=== PATIENT | female | born 1995 | race Two or more races ===

== ENCOUNTER 2017-06-03 21:51 | Emergency (ER) | payer MEDICAID ==
[~2017-06-03] VITALS: Ht 154.9 cm; Wt 45.4 kg
[2017-06-03 22:04] VITALS: BP 124/73
[2017-06-03 22:36] LABS: Basophils # (auto) 0 uL; CONDITION Y; Eosinophils # (auto) 0 uL; Eosinophils % (auto) 0.4 % (0.0-7.0); Hematocrit 41.8 % (36.0-46.0); Hemoglobin 13.9 g/dL (12.2-16.2); Lymphocytes # (auto) 2.4 uL; Lymphocytes % (auto) 24.9 % (10.0-50.0); Mean Corpuscular Hemoglobin 27.9 pg (28.0-32.0); Mean Corpuscular Hgb Conc. 33.3 g/dL (32.0-36.0); Mean Corpuscular Volume 83.8 fL (80.0-100.0); Mean Platelet Volume 8.7 fL (7.4-10.4); Monocytes # (auto) 0.4 uL; Monocytes % (auto) 4.3 % (0.0-12.0); Neutrophils # (auto) 6.8 uL; Neutrophils % (auto) 70.4 % (37.0-80.0); Platelet Count (auto) 370 10^3/uL (140-450); Red Cell Distribution Width 15.4 % (11.6-16.0); White Blood Cell 9.7 10^3/uL (4.4-10.8)
[2017-06-03 22:52] LABS: Albumin 3.9 g/dL (3.4-5.0); BUN/Creatinine Ratio 10.3; Calcium 8.6 mg/dL (8.5-10.1); Potassium 3.6 mmol/L (3.5-5.1)
[2017-06-03 22:55] LABS: Bilirubin, Total 0.3 mg/dL (0.2-1.0); Total Protein 8.5 g/dL (6.4-8.2)
[2017-06-03 23:03] LABS: Urine Bilirubin Negative (Negative); Urine Blood 2+ /uL (Negative); Urine Color Yellow (Yellow); Urine Glucose Normal (Normal); Urine Ketone 1+ (Negative); Urine Mucus FEW (None Seen); Urine Nitrite Negative (Negative); Urine RBC <1 /hpf (0 - 4); Urine Squamous Epithelial Cell FEW /hpf (<5); Urine Urobilinogen Normal (Negative); Urine pH 6.5 (5.0-8.0)
[2017-06-04] MEDS ORDERED: ONDANSETRON HCL 4 MG/2 ML VIAL IV ONE (00:45)
[2017-06-04] MEDS ORDERED: SODIUM CHLORIDE 0.9% 1,000 ML IV ONE ×2 (01:30)
== END 2017-06-04 02:19 | disposition home or self-care (01) ==
LOC: EDSEX 21:57 → ER 21:57
DX: E86.0 Dehydration (principal)
CPT/HCPCS: 36415; 80053; 81001; 81025; 84702; 85025; 96374; 99284; J2405; J7030

== ENCOUNTER 2017-11-17 18:40 | Emergency (ER) | payer SELFPAY ==
[~2017-11-17] VITALS: Ht 154.9 cm; Wt 57.2 kg
[2017-11-17 18:55] VITALS: BP 140/70
== END 2017-11-17 21:31 | disposition left against medical advice (07) ==
LOC: EDBD 18:40 → ER 18:40 → EDUNIT# 18:40 → ER 21:31
DX: S40.812A Abrasion of left upper arm, initial encounter (principal); Z53.21 Procedure and treatment not carried out due to patient leaving prior to being seen by health care provider; W45.8XXA Other foreign body or object entering through skin, initial encounter; Y93.89 Activity, other specified; Y92.89 Other specified places as the place of occurrence of the external cause; Y99.8 Other external cause status

== ENCOUNTER 2025-01-19 00:17 | Inpatient (IN) | payer MEDICAID, OTHER ==
[~2025-01-19] VITALS: Ht 162.6 cm; Wt 65.9 kg
[2025-01-19 00:30] VITALS: PULSE 131; RESP 43; O2SAT 100
--- NOTE | 2025-01-19 00:36 | ED.PDOC ---
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 * Individuals, who brought patient, eloped from emergency department after endorsing on finding her in her current stated after she drank alcohol at a green party. They also noted that she is . * Limited history, due to patient being altered and no family/additional historians being present upon patient's initial presentation. Vitals Temperature: Respiratory rate: SpO2: Heart rate: Blood pressure: Past Medical History: unknown Past Surgical History: unknown Social History: Patient was evaluated immediately. Patient had a good palpable pulse on initial evaluation. Patient was unresponsive with decreased respiratory rate and pulse ox dropping. Pupils were pinpoint. Bag-valve mask was initiated immediately. IV established and Narcan was given. Patient started waking up immediately and vomiting. She started resisting and pushing away and kicking. She required some soft restraints for to protect her from self-harm and the staff. Patient was still altered but much more awake than when she 1st presented. Additional doses of Narcan was given. Bedside ultrasound performed to evaluate this alleged . There was no intrauterine appreciated on bedside ultrasound. Gray catheter was placed. No clinical findings to suggest bleeding. HPI: Poor Historian. REVIEW OF SYSTEMS: Limited given the patient altered level of consciousness PHYSICAL EXAM: General: Initially unresponsive Head: normocephalic, atraumatic. Neck: supple, trachea is midline, no swelling. Throat: Normal phonation. Eyes:, no erythema, no purulent discharge, no proptosis, no icterus. Heart: regular tachycardic, no significant murmur appreciated. Lungs: no apparent respiratory distress, No wheezing, no rhonchi, no crackles. No stridors Clear to auscultation bilaterally. Abdomen: non tender to palpation, non distended, soft, no guarding, no rebound, + bowel sounds. Neuro: Initially GCS of three unresponsive. After Narcan patient is moving all four extremities with full force and screaming. Pupils were re-evaluated and they were dilated after Narcan. Skin: no petechia, no purpura, no cyanosis, non-pale, not jaundice. Lower extremities: --no - Pitting edema no deformity, no focal swelling, no calf TTP. moves all four extremities. Face: no apparent facial droop. Pupils are reactive to light bilaterally. ED COURSE: Time Seen by MD: 00:25 Reviewed Notes: Nurses Notes, Allergies Allergies: Coded Allergies: UNOBTAINABLE (Unverified , 01/19/25) UNRESPONSIVE Mode of Arrival: Wheelchair Was a procedure done? Was a procedure done?: No Differential Diagnosis (ALOC) Differential Diagnosis: Dehydration, Hypoglycemia, DKA, Encephalopathy, Meningitis, Sepsis, Hypoxemia, Seizure, Closed Head Injury, CVA, Mass Lesion, SAH, Drug Overdose, ETOH Intoxication, Heart Failure, Renal Failure X-Ray, Labs, Meds, VS Vital Signs Date Time Temp Pulse Resp B/P (MAP) Pulse Ox O2 Delivery O2 Flow Rate FiO2 01/19/25 01:46 90 01/19/25 00:47 91 01/19/25 00:30 131 43 100 Room Air* 0 21 01/19/25 00:30 96.7 131 43 137/89 (105) 100 96.7 01/19/25 00:27 113 01/19/25 00:17 96.2 95 6 137/89 (105) 12 96.2 Lab Test 01/19/25 01:20 01/19/25 00:50 01/19/25 00:22 Range/Units Troponin I High Sensitivity 3 L < 3 L </=34 ng/L Urine Color Colorless Yellow Urine Clarity Clear Clear Urine pH 5.5 5.0-9.0 Urine Specific Osteen 1.002 1.001-1.035 Urine Protein Trace H Negative Urine Ketones Negative Negative Urine Blood Negative Negative /uL Urine Nitrite Negative Negative Urine Bilirubin Negative Negative Urine Urobilinogen Normal Negative mg/dL Urine Leukocyte Esterase 1+ Negative /uL Urine RBC 1 0 - 4 /hpf Urine Microscopic WBC 6 H 0-5 /HPF Urine Squamous Epithelial Cells Few <5 /hpf Urine Bacteria Few H None Seen /hpf Urine Hyaline Casts Few 0 - 2 /lpf Urine Glucose Trace Normal mg/dL Urine Test Negative Negative Urine Opiates Screen Neg NEGATIVE Urine Fentanyl Screen Pos NEGATIVE Urine Barbiturates Screen Neg NEGATIVE Urine Phencyclidine Screen Neg NEGATIVE Urine Amphetamines Screen Pos NEGATIVE Urine Benzodiazepines Screen Neg NEGATIVE Urine Cocaine Screen Neg NEGATIVE Urine Cannabinoids Screen Neg NEGATIVE White Blood Count 13.3 H 4.4-10.8 10^3/uL Red Blood Count 4.11 4.0-5.20 10^6/uL Hemoglobin 12.1 L 12.2-16.2 g/dL Hematocrit 37.0 36.0-46.0 % Mean Corpuscular Volume 89.8 80.0-100.0 fL Mean Corpuscular Hemoglobin 29.5 28.0-32.0 pg Mean Corpuscular Hemoglobin Concent 32.8 32.0-36.0 g/dL Red Cell Distribution Width 13.9 11.8-14.3 % Platelet Count 280 140-450 10^3/uL Mean Platelet Volume 8.5 6.9-10.8 fL Neutrophils (%) (Auto) 41.1 37.0-80.0 % Lymphocytes (%) (Auto) 47.1 10.0-50.0 % Monocytes (%) (Auto) 9.3 0.0-12.0 % Eosinophils (%) (Auto) 1.5 0.0-7.0 % Basophils (%) (Auto) 1.0 0.0-2.0 % Neutrophils # (Auto) 5.5 1.6-8.6 10 ^3/uL Lymphocytes # (Auto) 6.3 H 0.4-5.4 10 ^3/uL Monocytes # (Auto) 1.2 0-1.3 10 ^3/uL Eosinophils # (Auto) 0.2 0-0.8 10 ^3/uL Basophils # (Auto) 0.1 0-0.2 10 ^3/uL Nucleated Red Blood Cells 0.1 % Sodium Level 136 136-145 mmol/L Potassium Level 3.3 L 3.5-5.1 mmol/L Chloride Level 104 98-107 mmol/L Carbon Dioxide Level 22 20-31 mmol/L Anion Gap 10 5-15 Blood Urea Nitrogen 9 9-23 mg/dL Creatinine 0.93 0.550-1.02 mg/dL Glomerular Filtration Rate Calc 85 >90 mL/min BUN/Creatinine Ratio 9.7 L 10.0-20.0 Serum Glucose 197 H 74-106 mg/dL Hemoglobin A1c 5.6 <5.7 % A1C Lactic Acid Level 5.6 *H 0.4-2.0 mmol/L Calcium Level 8.8 8.7-10.4 mg/dL Magnesium Level 2.1 1.6-2.6 mg/dL Total Bilirubin < 0.2 L 0.2-1.0 mg/dL Aspartate Amino Transferase (AST) 57 H 13-40 U/L Alanine Aminotransferase (ALT) 82 H 7-40 U/L Alkaline Phosphatase 96 46-116 U/L Creatine Kinase 76 34-145 U/L Total Protein 8.6 H 5.7-8.2 g/dL Albumin 3.8 3.2-4.8 g/dL Beta HCG, Quantitative 0.7 L 1.5-4.2 mIU/mL Salicylates Level < 3.0 -30 mg/dL Acetaminophen Level < 2.0 L 10.0-20.0 UG/ML Plasma/Serum Blood Alcohol 82.6 H <10 mg/dL Current Medications Medications (Trade) Dose Ordered Sig/Keiry Route Start Time Stop Time Status Last Admin Sodium Chloride 500 ml @ 500 mls/hr Q1H ONCE IV 01/19/25 00:30 01/19/25 01:29 DC 01/19/25 00:51 Naloxone HCl (Narcan) 8 mg ONCE ONCE IV 01/19/25 00:45 01/19/25 00:46 DC 01/19/25 00:51 Sodium Chloride 1,000 ml @ 1,000 mls/hr Q1H ONCE IV 01/19/25 01:30 01/19/25 02:29 DC 01/19/25 01:44 Piperacillin Sod/ Tazobactam Sod 100 ml @ 100 mls/hr ONCE ONCE IV 01/19/25 01:45 01/19/25 02:44 DC 01/19/25 01:53 [place] [address] Ph: [phone] DIAGNOSTIC IMAGING Diagnostic Imaging Report : [id number] Signed PATIENT: MARIEL OROSCO ACCT: [id number] UNIT: [id number] : 1995 LOC: ER ROOM / BED: / AGE / SEX: 29 / F ADM STATUS: REG ER SERVICE 0029 ORDERING PHYSICIAN: HARLEY ROSENBERG DO PROCEDURE(s): HWOCT - HEAD WITHOUT CONTRAST REASON: ALOC ORDER NUMBER(s): [id number], ACCESSION NUMBER(s): [id number] EXAM: CT HEAD WITHOUT CONTRAST INDICATION: ALOC TECHNIQUE: CT of the head without intravenous contrast. Radiation Dose : 1. Head: CT Dose: CTDI volume is 50 mGy. Dose-length product is 798 mGy*cm The dose indicators for CT are the volume Computed Tomography (CT) Dose Index (CTDIvol) and the Dose Length Product (DLP), and are measured in units of mGy and mGy-cm, respectively. These indicators are not patient dose, but values generated from the CT scanner acquisition factors. The report includes radiation exposure data for exposures received during this examination. COMPARISON: None FINDINGS: There is no evidence of acute intracranial hemorrhage, extra-axial collection, mass effect, midline shift, herniation or hydrocephalus. The ventricles, sulci and cisterns are age appropriate. The galaviz-white differentiation is intact. Patchy periventricular and subcortical white matter hypoattenuation is nonsp ecific but may be related to small vessel ischemic disease. The visualized paranasal sinuses and mastoid air cells are clear. The surrounding soft tissues and osseous structures are unremarkable. IMPRESSION: 1. No acute intracranial abnormality. Radiation optimization: All CT scans at this facility use at least one of these dose optimization techniques: automated exposure control mA and/or kV adjustment per patient size (includes targeted exams where dose is matched to clinical indication) or iterative reconstruction. ATED BY: KAVITHA HERNANDEZ MD DICTATED DATE/TIME: 01/19/25153 SIGNED BY: KAVITHA HERNANDEZ MD SIGNED DATE/TIME: 01/19/25153 CC: [place] [address] Ph: [phone] DIAGNOSTIC IMAGING Diagnostic Imaging Report : [id number] Signed PATIENT: MARIEL OROSCO ACCT: [id number] UNIT: [id number] : 1995 LOC: ER ROOM / BED: / AGE / SEX: 29 / F ADM STATUS: REG ER SERVICE ORDERING PHYSICIAN: HARLEY ROSENBERG DO PROCEDURE(s): OBUS - OB ULTRASOUND COMP GTR 14 WKS REASON: CONFIRM GESTATION/ALOC/NO CARE ORDER NUMBER(s): [id number], ACCESSION NUMBER(s): [id number] OB ULTRASOUND <14 WEEKS: HISTORY: CONFIRM GESTATION/ALOC/NO CARE TECHNIQUE: Multiple real-time grayscale sonographic images of the pelvis with duplex Doppler color flow, spectral and M-mode analysis. TRANSDUCERS: Transabdominal COMPARISON: None FINDINGS: Only a transabdominal pelvic ultrasound study was performed. Uterus measures approximately 9.1 x 7.3 x 4.7 cm and demonstrates no abnormality. Endometrium measures approximately 14 mm in thickness and demonstrates homogeneous echogenicity. No intrauterine gestational sac is identified. Right ovary measures approximately 3.1 x 2.4 x 3 cm and demonstrates no abnormality with normal Doppler color flow. Left ovary measures approximately 3.7 x 2.4 x 3.7 cm and appears unremarkable apart from a small cyst measuring up to 2.3 cm. Normal Doppler color flow noted. No evidence of pelvic mass or fluid collection. IMPRESSION: No intrauterine noted. Recommend correlation with quantitative beta- hCG. ATED BY: BRAEDEN ALFORD MD DICTATED DATE/TIME: 01/19/25109 SIGNED BY: BRAEDEN ALFORD MD SIGNED DATE/TIME: 01/19/25109 CC: Time of 1ST Reevaluation: 00:55 Reevaluation 1ST: Unchanged Time of 2ND Reevaluation: 01:42 (Patient is now conversational. She states using methamphetamine and was in a green party where she drank alcohol. Denies use of any other drugs. Patient denies any pain. Restraints were removed and patient in no acute distress resting comfortably in bed. I started Zosyn antibiotics empirically given the patient's slight leukocytosis and lactic acid elevation and slight UTI and possible aspiration pneumonia) Reevaluation 2ND: Improved Patient Education/Counseling: Diagnosis, Treatment, Other (patient is altered ) Family Education/Counseling: Other Comments Patient presented with the above HPI.---ALOC---workup was initiated. patient was found with the above mentioned diagnosis. the following medications were ordered: please refer to order lists of meds and tests obtained by myself Dr. Rosenberg. Patient ED course and VS have been stabilized. Patient has been reassessed in the ED and remained in a stable condition. Patient/family voices understanding and is agreeable with plan. Patient has been observed in the ED adequate length of time to insure improvement/stability. Escalation of care considered: Consideration of escalation to observation or admission Patient was ADMITTED to the medicine team for further evaluation and treatment of their presentation. All the reports of any imaging studies that were ordered by myself were reviewed by myself. Departure 1 Departure Time of Disposition: 01:21 Impression: Primary Impression: Altered level of consciousness Additional Impressions: Methamphetamine abuse Overdose of fentanyl Alcohol abuse UTI (urinary tract infection) Disposition: ADMITTED INPATIENT Admit to: Tele Condition: Guarded Discharged With: Self Critical Care Note Critical Care Time?: Yes (1 hr-critical care time only) Heart Score Heart Score: Heart Score Response (Comments) Value History N/A 0 EKG N/A 0 Age N/A 0 Risk Factors N/A 0 Troponin N/A 0 Total 0 I personally scribed for HARLEY ROSENBERG DO ([email or web address]) on 01/19/25 at 00:36. Electronically submitted by Washington Aldrich ([email or web address]). I personally scribed for HARLEY ROSENBERG DO ([email or web address]) on 01/19/25 at 02:12. Electronically submitted by Washington Aldrich ([email or web address]). HARLEY ROSENBERG DO Jan 19, 2025 00:36
[2025-01-19 00:42] LABS: Basophils # (auto) 0.1 10 ^3/uL (0-0.2); Eosinophils # (auto) 0.2 10 ^3/uL (0-0.8); Eosinophils % (auto) 1.5 % (0.0-7.0); Hemoglobin 12.1 g/dL (12.2-16.2); Lymphocytes # (auto) 6.3 10 ^3/uL (0.4-5.4); Lymphocytes % (auto) 47.1 % (10.0-50.0); Mean Corpuscular Hemoglobin 29.5 pg (28.0-32.0); Mean Corpuscular Hgb Conc. 32.8 g/dL (32.0-36.0); Mean Corpuscular Volume 89.8 fL (80.0-100.0); Monocytes # (auto) 1.2 10 ^3/uL (0-1.3); Monocytes % (auto) 9.3 % (0.0-12.0); Neutrophils # (auto) 5.5 10 ^3/uL (1.6-8.6); Neutrophils % (auto) 41.1 % (37.0-80.0); Nucleated Red Blood Cells % 0.1 %; Platelet Count (auto) 280 10^3/uL (140-450); Red Blood Cells 4.11 10^6/uL (4.0-5.20); Red Cell Distribution Width 13.9 % (11.8-14.3); White Blood Cell 13.3 10^3/uL (4.4-10.8)
[2025-01-19] MEDS: NALOXONE HCL 1MG/ML 2ML SYRINGE IV ONE (00:51)
[2025-01-19] MEDS: SODIUM CHLORIDE 0.9% 500 ML IV ONE ×2 (00:51→02:00)
[2025-01-19 01:04] LABS: Acetaminophen < 2.0 UG/ML (10.0-20.0); Salicylate < 3.0 mg/dL (-30)
[2025-01-19 01:07] LABS: Albumin 3.8 g/dL (3.2-4.8); Alkaline Phosphatase 96 U/L (46-116); Anion Gap 10 (5-15); BUN/Creatinine Ratio 9.7 (10.0-20.0); Calcium 8.8 mg/dL (8.7-10.4); Carbon Dioxide 22 mmol/L (20-31); Chloride 104 mmol/L (98-107); Creatine Kinase IFCC 76 U/L (34-145); Magnesium 2.1 mg/dL (1.6-2.6)
[2025-01-19 01:09] LABS: Alanine Aminotransferase 82 U/L (7-40); Aspartate Aminotransferase 57 U/L (13-40); Bilirubin, Total < 0.2 mg/dL (0.2-1.0); Blood Urea Nitrogen 9 mg/dL (9-23); Glucose 197 mg/dL (74-106); Potassium 3.3 mmol/L (3.5-5.1); Sodium 136 mmol/L (136-145); Total Protein 8.6 g/dL (5.7-8.2)
--- NOTE | 2025-01-19 01:13 | DVH ---
OB ULTRASOUND <14 WEEKS: HISTORY: CONFIRM GESTATION/ALOC/NO CARE TECHNIQUE: Multiple real-time grayscale sonographic images of the pelvis with duplex Doppler color f low, spectral and M-mode analysis. TRANSDUCERS: Transabdominal COMPARISON: None FINDINGS: Only a transabdominal pelvic ultrasound study was performed. Uterus measures approximately 9.1 x 7.3 x 4.7 cm and demonstrates no abnormality. Endometrium measure s approximately 14 mm in thickness and demonstrates homogeneous echogenicity. No intrauterine gestati onal sac is identified. Right ovary measures approximately 3.1 x 2.4 x 3 cm and demonstrates no abnormality with normal Doppl er color flow. Left ovary measures approximately 3.7 x 2.4 x 3.7 cm and appears unremarkable apart from a small cyst measuring up to 2.3 cm. Normal Doppler color flow noted. No evidence of pelvic mass or fluid collection. IMPRESSION: No intrauterine noted. Recommend correlation with quantitative beta-hCG.
[2025-01-19 01:14] LABS: Lactic Acid w/Reflex 5.6 mmol/L (0.4-2.0)
[2025-01-19 01:25] LABS: Urine Bacteria FEW /hpf (None Seen); Urine Blood Negative /uL (Negative); Urine Clarity Clear (Clear); Urine Color Colorless (Yellow); Urine Hyaline Cast FEW /lpf (0 - 2); Urine Protein, UAD TRACE (Negative); Urine Specific Gravity 1.002 (1.001-1.035); Urine Squamous Epithelial Cell FEW /hpf (<5); Urine Urobilinogen Normal (Negative); Urine WBC 6 /HPF (0-5); Urine pH 5.5 (5.0-9.0)
[2025-01-19 01:39] LABS: Blood Alcohol 82.6 mg/dL (<10)
[2025-01-19 01:41] LABS: Amphetamine Screen, Urine Pos (NEGATIVE); Barbiturate Scree,Urine Neg (NEGATIVE); Benzodiazephine Screen, Urine Neg (NEGATIVE); Cannabinoid Screen, Urine Neg (NEGATIVE); Cocaine Screen, Urine Neg (NEGATIVE); Opiate Scree,Urine Neg (NEGATIVE); Phencyclidine Screen, Urine Neg (NEGATIVE)
[2025-01-19] MEDS: SODIUM CHLORIDE 0.9% 1,000 ML IV ONE (01:44)
[2025-01-19] MEDS: PIPERACILLIN-TAZOB 3.375GM 100 ML IV ONE (01:53)
--- NOTE | 2025-01-19 01:57 | DVH ---
EXAM: CT HEAD WITHOUT CONTRAST INDICATION: ALOC TECHNIQUE: CT of the head without intravenous contrast. Radiation Dose : 1. Head: CT Dose: CTDI volume is 50 mGy. Dose-length product is 798 mGy*cm The dose indicators for CT are the volume Computed Tomography (CT) Dose Index (CTDIvol) and the Dose Length Product (DLP), and are measured in units of mGy and mGy-cm, respectively. These indicators are not patient dose, but values generated from the CT scanner acquisition factors. The report includes radiation exposure data for exposures received during this examination. COMPARISON: None FINDINGS: There is no evidence of acute intracranial hemorrhage, extra-axial collection, mass effect, midline s hift, herniation or hydrocephalus. The ventricles, sulci and cisterns are age appropriate. The galaviz-white differentiation is intact. Patchy periventricular and subcortical white matter hypoattenuation is nonspecific but may be related to small vessel ischemic disease. The visualized paranasal sinuses and mastoid air cells are clear. The surrounding soft tissues and osseous structures are unremarkable. IMPRESSION: 1. No acute intracranial abnormality. Radiation optimization: All CT scans at this facility use at least one of these dose optimization leora hniques: automated exposure control mA and/or kV adjustment per patient size (includes targeted exam s where dose is matched to clinical indication) or iterative reconstruction.
[2025-01-19] MEDS: POTASSIUM CHL 20MEQ/50ML 50 ML IV SCH (02:15)
[2025-01-19] MEDS: SODIUM CHLORIDE 0.9% 1,000 ML IV SCH (02:51)
[2025-01-19] MEDS: ONDANSETRON HCL 4 MG/2 ML VIAL IV PRN (03:07)
--- NOTE | 2025-01-19 03:53 | DVH ---
INDICATION: ALOC poss aspir pna TECHNIQUE: Frontal view of the chest. COMPARISON: None FINDINGS: Right basilar opacity. The heart and mediastinal contours are grossly unremarkable. There is no evid ence of pleural disease. . The bony structures of the chest are intact without fracture. IMPRESSION: 1. Right basilar opacity which can represent aspiration
--- NOTE | 2025-01-19 05:31 | ECG ---
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
--- NOTE | 2025-01-19 05:31 | ECG ---
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
--- NOTE | 2025-01-19 05:32 | ECG ---
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
--- NOTE | 2025-01-19 05:56 | DVHHPRES ---
History of Present Illness Resident Creating Document: OBED AHUJA RESIDENT Reason for Visit: Unconsious History of Present Illness This is a 29-year-old female brought to the ED by a male gentleman due to loss of consciousness. Per eyewitness, patient was brought in by a gentleman who said he found her outside unconscious and brought her to the ED. Patient remained unconscious and unresponsive to sternal rub. Patient had a pulse thus no CPR was needed. Her serum glucose was normal. She received naloxone and in less than a minutes she became responsive, very aggressive and vomited large mount of alcohol smelling fluid. She continued to be belligerent and had to be restrained. She received another dose of Naloxone. After about 10 minutes patient was calm but drowsy. Patient was initially thought to be , but US of the abdomen was negative. UDS was positive for fentanyl and amphetamines and alcohol. Currently, patient is alert and oriented to self, place and reason for coming to the hospital. Patient said, she was at a alliance party and that was the last thing she remembered. Zosyn started to empirically over aspiration pneumonia. Past medical history: unknown Past surgical history: unknown Social history: unknown Family history: unknown Past Medical History See H&P Past Surgical History See H&P Review of Systems Constitutional: No: Fever, Chills, Sweats, Weakness, Malaise, Other Eyes: No: Pain, Vision change, Conjunctivae inflammation, Eyelid inflammation, Other, Redness ENT: No: Ear pain, Ear discharge, Nose pain, Nose discharge, Nose congestion, Mouth pain, Mouth swelling, Throat pain, Throat swelling, Other Respiratory: No: Cough, Dry, Shortness of breath, SOB with excertion, Wheezing, Hemoptysis, Pleuritic Pain, Sputum, Wheezing, Other Cardiovascular: No: Chest Pain, Palpitations, Orthopnea, Paroxysmal Noc. Dyspnea, Edema, Lt Headedness, Other Gastrointestinal: No: Nausea, Vomiting, Abdominal Pain, Diarrhea, Constipation, Melena, Hematochezia, Other Genitourinary: No Dysuria, No Frequency, No Incontinence, No Hematuria, No Retention, No Other Musculoskeletal: No: other, neck pain, shoulder pain, arm pain, back pain, hand pain, leg pain, foot pain Skin: No: Rash, Lesions, Jaundice, Bruising, Other Allergies: Coded Allergies: NO KNOWN ALLERGIES (Unverified , 06/03/17) Medications Current Medications Medications Dose Ordered Sig/Keiry Route Start Time Stop Time Status Last Admin Dose Admin Ondansetron HCl 4 mg Q4HP PRN IV 01/19/25 02:00 01/19/25 03:07 4 MG Enoxaparin Sodium 40 mg DAILY SC 01/19/25 10:00 Piperacillin Sod/ Tazobactam Sod 100 ml @ 25 mls/hr Q8H IV 01/19/25 10:00 Pantoprazole Sodium 40 mg DAILY IV 01/19/25 10:00 Sodium Chloride 1,000 ml @ 100 mls/hr Q10H IV 01/19/25 02:00 01/19/25 02:51 100 MLS/HR Potassium Chloride 50 ml @ 25 mls/hr Q2H IV 01/19/25 02:15 01/19/25 06:14 01/19/25 04:15 25 MLS/HR Exam Vital Signs Vital Signs Date Time Temp Pulse Resp B/P (MAP) Pulse Ox O2 Delivery O2 Flow Rate FiO2 01/19/25 04:00 86 14 104/71 (82) 99 01/19/25 00:30 Room Air* 0 21 01/19/25 00:30 96.7 96.7 Exam General Appearance: Unconscious HEENT: pinpoint pupil Respiratory: Clear to auscultation, Normal air movement Cardiovascular: Regular rate, Normal S1, Normal S2, No murmurs, no chest wall tenderness Abdominal: NO distention, no tenderness, bowel sounds present, no scars noted Extremities: No clubbing, No cyanosis, No edema, Normal pulses, No tenderness/swelling Skin: No rashes, No breakdown, No significant lesion Neuro: pinpoint pupil--> responded after naloxone Psych/Mental Status: drowsy Labs/Xrays Labs Test 01/19/25 03:30 01/19/25 02:40 01/19/25 00:50 01/19/25 00:22 Range/Units Troponin I High Sensitivity 8 </=34 ng/L Lactic Acid Level 2.3 *H 0.4-2.0 mmol/L Urine Color Colorless Yellow Urine Clarity Clear Clear Urine pH 5.5 5.0-9.0 Urine Specific [place] 1.002 1.001-1.035 Urine Protein Trace H Negative Urine Ketones Negative Negative Urine Blood Negative Negative /uL Urine Nitrite Negative Negative Urine Bilirubin Negative Negative Urine Urobilinogen Normal Negative mg/dL Urine Leukocyte Esterase 1+ Negative /uL Urine RBC 1 0 - 4 /hpf Urine Microscopic WBC 6 H 0-5 /HPF Urine Squamous Epithelial Cells Few <5 /hpf Urine Bacteria Few H None Seen /hpf Urine Hyaline Casts Few 0 - 2 /lpf Urine Glucose Trace Normal mg/dL Urine Test Negative Negative Urine Opiates Screen Neg NEGATIVE Urine Fentanyl Screen Pos NEGATIVE Urine Barbiturates Screen Neg NEGATIVE Urine Phencyclidine Screen Neg NEGATIVE Urine Amphetamines Screen Pos NEGATIVE Urine Benzodiazepines Screen Neg NEGATIVE Urine Cocaine Screen Neg NEGATIVE Urine Cannabinoids Screen Neg NEGATIVE White Blood Count 13.3 H 4.4-10.8 10^3/uL Red Blood Count 4.11 4.0-5.20 10^6/uL Hemoglobin 12.1 L 12.2-16.2 g/dL Hematocrit 37.0 36.0-46.0 % Mean Corpuscular Volume 89.8 80.0-100.0 fL Mean Corpuscular Hemoglobin 29.5 28.0-32.0 pg Mean Corpuscular Hemoglobin Concent 32.8 32.0-36.0 g/dL Red Cell Distribution Width 13.9 11.8-14.3 % Platelet Count 280 140-450 10^3/uL Mean Platelet Volume 8.5 6.9-10.8 fL Neutrophils (%) (Auto) 41.1 37.0-80.0 % Lymphocytes (%) (Auto) 47.1 10.0-50.0 % Monocytes (%) (Auto) 9.3 0.0-12.0 % Eosinophils (%) (Auto) 1.5 0.0-7.0 % Basophils (%) (Auto) 1.0 0.0-2.0 % Neutrophils # (Auto) 5.5 1.6-8.6 10 ^3/uL Lymphocytes # (Auto) 6.3 H 0.4-5.4 10 ^3/uL Monocytes # (Auto) 1.2 0-1.3 10 ^3/uL Eosinophils # (Auto) 0.2 0-0.8 10 ^3/uL Basophils # (Auto) 0.1 0-0.2 10 ^3/uL Nucleated Red Blood Cells 0.1 % Sodium Level 136 136-145 mmol/L Potassium Level 3.3 L 3.5-5.1 mmol/L Chloride Level 104 98-107 mmol/L Carbon Dioxide Level 22 20-31 mmol/L Anion Gap 10 5-15 Blood Urea Nitrogen 9 9-23 mg/dL Creatinine 0.93 0.550-1.02 mg/dL Glomerular Filtration Rate Calc 85 >90 mL/min BUN/Creatinine Ratio 9.7 L 10.0-20.0 Serum Glucose 197 H 74-106 mg/dL Hemoglobin A1c 5.6 <5.7 % A1C Calcium Level 8.8 8.7-10.4 mg/dL Magnesium Level 2.1 1.6-2.6 mg/dL Total Bilirubin < 0.2 L 0.2-1.0 mg/dL Aspartate Amino Transferase (AST) 57 H 13-40 U/L Alanine Aminotransferase (ALT) 82 H 7-40 U/L Alkaline Phosphatase 96 46-116 U/L Creatine Kinase 76 34-145 U/L Total Protein 8.6 H 5.7-8.2 g/dL Albumin 3.8 3.2-4.8 g/dL Beta HCG, Quantitative 0.7 L 1.5-4.2 mIU/mL Salicylates Level < 3.0 -30 mg/dL Acetaminophen Level < 2.0 L 10.0-20.0 UG/ML Plasma/Serum Blood Alcohol 82.6 H <10 mg/dL Assessment/Plan Assessment/Plan Toxic Encephalopathy --> Continue maintenance fluid --> Naloxone --> Monitor electrolytes Polysubstance overdose --> amphetamine, fentanyl and alcohol --> Naloxone --> recommend psychiatric evaluation --> Counselled patient about substance overdose and it implications Aspiration pneumonia --> Leukocytosis -->Zosyn --> fluids Sepsis due to aspiration pneumonia --> Continue Zosyn --> Repeat labs --> Monitor lactic acid Lactic acidosis --> trending downward --> Continue on maintenance fluid --> repeat lactic acid in 3 hours Hypokalemia --> replaced --> repeat BMP 3-4 hours For more than 20 minutes, full code Case and plan discussed with Dr. Bell Plan discussed with: Patient My Orders Orders - OBED AHUJA RESIDENT Procedure Category Date Status Time Admit ADMIT 01/19/25 Transmitted 01:54 Code Status CODE 01/19/25 Transmitted 01:54 Vital Signs [facility] 01/19/25 In Process 01:54 Review Orders With [facility] 01/19/25 In Process Adm. 01:54 Npo (Nothing By DIET 01/19/25 Transmitted Mouth) Diet Breakfast Notify Md Of Changes [facility] 01/19/25 In Process From Base 01:54 Advance Directive YELENA 01/19/25 In Process 01:54 Chest Two Views XY 01/20/25 Logged Routine 04:00 Patient Condition ORDERS 01/19/25 Transmitted 01:54 Allergies YELENA 01/19/25 In Process 01:54 Ondansetron Hcl PHA 01/19/25 In Process (Zofran) 02:00 Enoxaparin Sodium PHA 01/19/25 In Process (Lovenox) 10:00 Oxygen By Nasal RT 01/19/25 Transmitted Cannula 01:54 Stat Ekg For Chest YELENA 01/19/25 In Process Pain 01:54 Notify Md Of Changes [facility] 01/19/25 In Process From Base 01:54 Child Day [facility] Worker For [facility] 01/19/25 In Process 24 Hours 01:54 Emergency Dysrhythmia [facility] 01/19/25 In Process Protocol 01:54 Rhythm Strips Once [facility] 01/19/25 In Process Every Shift 01:54 Piperacillin-Tazob PHA 01/19/25 In Process 3.375gm (Zosyn 3.375g 10:00 Pantoprazole PHA 01/19/25 In Process (Protonix) 10:00 Sodium Chloride 0.9% PHA 01/19/25 In Process 02:00 Complete Blood Count LAB 01/19/25 Logged 04:00 Comprehensive LAB 01/19/25 Logged Metabolic Panel 04:00 Potassium Chl PHA 01/19/25 In Process 20meq/50ml (Potassium 02:15 Date of Service: Jan 19, 2025 Billing Provider: GRANT BELL MD Common Visit Codes: [id number] INP/OBS CARE (HIGH) OBED AHUJA RESIDENT Jan 19, 2025 05:56 GRANT BELL MD Jan 19, 2025 17:43
[2025-01-19 06:59] LABS: Basophils # (auto) 0 10 ^3/uL (0-0.2); Basophils % (auto) 0.4 % (0.0-2.0); Eosinophils # (auto) 0 10 ^3/uL (0-0.8); Hematocrit 34.3 % (36.0-46.0); Hemoglobin 11.9 g/dL (12.2-16.2); Lymphocytes # (auto) 0.8 10 ^3/uL (0.4-5.4); Lymphocytes % (auto) 11.1 % (10.0-50.0); Mean Corpuscular Hgb Conc. 34.6 g/dL (32.0-36.0); Mean Corpuscular Volume 86.8 fL (80.0-100.0); Monocytes # (auto) 0.5 10 ^3/uL (0-1.3); Monocytes % (auto) 6.6 % (0.0-12.0); Neutrophils # (auto) 5.8 10 ^3/uL (1.6-8.6); Neutrophils % (auto) 81.9 % (37.0-80.0); Platelet Count (auto) 229 10^3/uL (140-450); Red Blood Cells 3.95 10^6/uL (4.0-5.20); Red Cell Distribution Width 13.4 % (11.8-14.3); White Blood Cell 7.1 10^3/uL (4.4-10.8)
[2025-01-19 07:02] LABS: Albumin 3.7 g/dL (3.2-4.8); Alkaline Phosphatase 95 U/L (46-116); Anion Gap 6 (5-15); BUN/Creatinine Ratio 9.7 (10.0-20.0); Carbon Dioxide 26 mmol/L (20-31); Chloride 106 mmol/L (98-107); Sodium 138 mmol/L (136-145)
[2025-01-19 07:04] LABS: Alanine Aminotransferase 82 U/L (7-40); Aspartate Aminotransferase 55 U/L (13-40); Bilirubin, Total 0.2 mg/dL (0.2-1.0); Blood Urea Nitrogen 7 mg/dL (9-23); Calcium 7.7 mg/dL (8.7-10.4); Glucose 115 mg/dL (74-106); Total Protein 8.3 g/dL (5.7-8.2)
[2025-01-19 07:59] VITALS: PULSE 93; RESP 16; O2SAT 98
[2025-01-19] MEDS: DOXYCYCLINE 100MG/100ML 100 ML IV SCH (08:50)
[2025-01-19] MEDS: ENOXAPARIN SOD 40 MG/0.4 ML SYRINGE SC SCH (09:45)
[2025-01-19] MEDS: PIPERACILLIN-TAZOB 3.375GM 100 ML IV SCH (09:45)
[2025-01-19] MEDS: PANTOPRAZOLE 40 MG/10 ML VIAL INJ IV SCH (09:45)
[2025-01-19] MEDS: cefTRIAXone 1GM/50ML D5W 50 ML IV ONE (10:54)
--- NOTE | 2025-01-19 13:49 | DVHPNRES ---
Progress Note Date Seen: Jan 19, 2025 Resident Creating Document: TODD DODD RESIDENT Medical Necessity Reason Pt with a Central, PICC or Fol: Yes The following are medically ne: Gray Catheter Subjective Review of Systems Braeden Dang is a 29-year-old female brought to the ED by a male gentleman due to loss of consciousness. Per eyewitness, patient was brought in by a gentleman who said he found her outside unconscious and brought her to the ED. Patient remained unconscious and unresponsive to sternal rub. Patient had a pulse thus no CPR was needed. Her serum glucose was normal. She received naloxone and in less than a minutes she became responsive, very aggressive and vomited large mount of alcohol smelling fluid. She continued to be belligerent and had to be restrained. She received another dose of Naloxone. After about 10 minutes patient was calm but drowsy. Patient was initially thought to be , but US of the abdomen was negative. UDS was positive for fentanyl and amphetamines and alcohol. Currently, patient is alert and oriented to self, place and reason for coming to the hospital. Patient said, she was at a libertarian and that was the last thing she remembered. Zosyn started to empirically over aspiration pneumonia. PMH: Bipolar PSH: Denies Family history: Denies Personal history: Homeless. Smokes less than 1 pack per day, marijuana, methamphetamine, 6 alcoholic beverages every day. Allergies: No known allergies Patient seen and examined at the bedside. Patient is oriented x3 but drowsy due to drug overdose. Continuously monitoring for the symptoms. Supportive management for now. Objective vital signs Vital Sign Date Time Temp Pulse Resp B/P (MAP) Pulse Ox O2 Delivery O2 Flow Rate FiO2 01/19/25 13:00 82 17 100/63 (75) 98 01/19/25 08:00 98.9 98.9 01/19/25 07:59 Room Air* 0 21 Total Intake and Output 01/18/25 01/18/25 01/19/25 15:00 23:00 07:00 Intake Total 2100 ml Output Total 1100 ml Balance 1000 ml medications Current Medications Medications Dose Ordered Sig/Keiry Route Start Time Stop Time Status Last Admin Dose Admin Ondansetron HCl 4 mg Q4HP PRN IV 01/19/25 02:00 01/19/25 03:07 4 MG Enoxaparin Sodium 40 mg DAILY SC 01/19/25 10:00 Pantoprazole Sodium 40 mg DAILY IV 01/19/25 10:00 01/19/25 09:45 40 MG Sodium Chloride 1,000 ml @ 100 mls/hr Q10H IV 01/19/25 02:00 01/19/25 12:00 100 MLS/HR Doxycycline Hyclate 100 ml @ 50 mls/hr Q12HR@0800,2000 IV 01/19/25 08:15 01/19/25 08:50 50 MLS/HR Ceftriaxone Sodium 50 ml @ 100 mls/hr DAILY@09 IV 01/20/25 09:00 Examination Pt is lying on bed General Appearance:Drowsy, Oriented X3, Cooperative, moderate distress HEENT: Atraumatic, Mucous membranes dry Respiratory: Clear to auscultation, Normal air movement, No added sounds Cardiovascular: Regular rate, Normal S1, Normal S2, No murmurs Abdominal: hypoactive bowel sounds, Soft, no distention, no tenderness Extremities: No edema, Normal pulses, No tenderness/swelling Skin: No Significant rash, except past surgical scars Neuro: constricted pupil, Normal speech, sensorimotor deficits none Nurse was there as sharperone during examination laboratory and microbiology Laboratory Tests 01/19/25 06:32 Test 01/19/25 06:32 Range/Units Serum Glucose 115 H 74-106 mg/dL Labs and/or images reviewed: Labs reviewed by me, Image(s) reviewed by me Problem List/Assessment/Plan Problem List/Assessment/Plan # Acute toxic/metabolic encephalopathy likely from polysubstance overdose # ? fentanyl overdose # alcohol intoxication # polysubstance overdose # Dehydration # Lactic acidosis - telemetry - responded to naloxone - drug screen positive for alcohol, amphetamines, fentanyl - continue maintenance fluid - monitor electrolytes - tele psychiatry evaluation - counselled patient about substance overdose and complications # ? Sepsis likely from PNA # Aspiration pneumonia # Acute G+/- Bacterial PNA - evident on CXR - Rocephin and doxycycline - ordered cultures - monitor lab # Acute complicated UTI - evident on urinalysis - ordered urine bacterial culture - currently giving Rocephin # Hypokalemia - Repleting - Monitor lab Protonox Lovenox NPO if passes swallow eval then regular diet Patient is clinically stable to undergo psych evaluation. Goals of care discussed with the patient for more than 27 minutes: Full code status Case discussed with Dr. Simpson, patient and nurse Plan discussed with: Patient My Orders My Orders Orders - TODD DODD Procedure Category Date Status Time Urine Bacterial NAY 01/19/25 In Process Culture 08:08 Doxycycline PHA 01/19/25 In Process 100mg/100ml 08:15 *Tele Psych Consult CONS 01/19/25 Transmitted 10:28 * Industrial Electrician Journeyman Consultation CONS 01/19/25 Transmitted 10:29 Ceftriaxone 1gm/50ml PHA 01/20/25 In Process D5w (Rocephin) 09:00 Swallow Eval Follow Up [facility] 01/19/25 Verified 13:31 TODD DODD RESIDENT Jan 19, 2025 13:49
[2025-01-19 19:33] VITALS: PULSE 89; RESP 22; O2SAT 100
[2025-01-20 04:59] LABS: Basophils # (auto) 0 10 ^3/uL (0-0.2); Basophils % (auto) 0.1 % (0.0-2.0); Eosinophils # (auto) 0.1 10 ^3/uL (0-0.8); Eosinophils % (auto) 1.6 % (0.0-7.0); Hematocrit 35.7 % (36.0-46.0); Hemoglobin 11.6 g/dL (12.2-16.2); Lymphocytes # (auto) 1.2 10 ^3/uL (0.4-5.4); Lymphocytes % (auto) 23.2 % (10.0-50.0); Mean Corpuscular Hgb Conc. 32.6 g/dL (32.0-36.0); Mean Corpuscular Volume 88.9 fL (80.0-100.0); Monocytes # (auto) 0.3 10 ^3/uL (0-1.3); Monocytes % (auto) 6.5 % (0.0-12.0); Neutrophils # (auto) 3.4 10 ^3/uL (1.6-8.6); Neutrophils % (auto) 68.6 % (37.0-80.0); Nucleated Red Blood Cells % 0.2 %; Platelet Count (auto) 203 10^3/uL (140-450); Red Blood Cells 4.01 10^6/uL (4.0-5.20); Red Cell Distribution Width 13.9 % (11.8-14.3)
[2025-01-20 05:22] LABS: Alkaline Phosphatase 83 U/L (46-116); Anion Gap 3 (5-15); BUN/Creatinine Ratio 7.7 (10.0-20.0); Carbon Dioxide 27 mmol/L (20-31); Glucose 75 mg/dL (74-106); Sodium 138 mmol/L (136-145); Total Protein 7.1 g/dL (5.7-8.2)
[2025-01-20 05:23] LABS: Alanine Aminotransferase 68 U/L (7-40); Aspartate Aminotransferase 44 U/L (13-40); Blood Urea Nitrogen 6 mg/dL (9-23); Calcium 8.1 mg/dL (8.7-10.4); Chloride 108 mmol/L (98-107)
--- NOTE | 2025-01-20 05:27 | DVH ---
EXAM: XR Chest, 1 View CLINICAL INDICATION: R/o aspiration pneumonia TECHNIQUE: Frontal view of the chest. COMPARISON: None FINDINGS: LUNGS AND PLEURAL SPACES: Right basilar atelectasis or pneumonia. No pneumothorax. HEART: Unremarkable. No cardiomegaly. MEDIASTINUM: Unremarkable. Normal mediastinal contour. BONES/JOINTS: Unremarkable. No acute fracture. OTHER FINDINGS: . IMPRESSION: Right basilar atelectasis or pneumonia.
[2025-01-20 05:46] LABS: Bilirubin, Total 0.2 mg/dL (0.2-1.0)
[2025-01-20 08:00] VITALS: PULSE 77; RESP 15; O2SAT 99
[2025-01-20] MEDS ORDERED: NALOXONE HCL 0.4 MG/ML VIAL IM ONE (10:00)
[2025-01-20] MEDS: cefTRIAXone 1GM/50ML D5W 50 ML IV SCH (10:28)
--- NOTE | 2025-01-20 14:13 | DVHINCON2 ---
Date of service: Jan 20, 2025 Referring Physician hospitalist Reason for Consultation suture in vagina History of Present Illness pt was brought in to er fpr aloc due to overdose of alcohol ,fentanyl and amphetamine. preg test is neg and reports no aub .upon insertion of camarena a suture was noted in vagina Past Medical History drug use,pscyh Past Surgical History na Family History na Social History pos for drug Allergies: Coded Allergies: NO KNOWN ALLERGIES (Unverified , 06/03/17) Current Medications Current Medications Medications (Trade) Dose Ordered Sig/Keiry Route PRN Reason Start Time Stop Time Status Last Admin Ceftriaxone Sodium 50 ml @ 100 mls/hr DAILY@09 IV 01/20/25 09:00 01/20/25 10:28 Review of Systems c/w hpi Vital Signs Vital Signs Date Time Temp Pulse Resp B/P (MAP) Pulse Ox O2 Delivery O2 Flow Rate FiO2 01/20/25 12:30 74 15 112/74 (87) 99 01/20/25 08:00 Nasal Cannula* 2 28 01/20/25 08:00 98.3 98.3 Physical Exam pt is alert and responding abd -soft,nt breasts -sym,metrical ,no masses pelvic-no suture noted,afetr insertion of camarena suture came out,pelvic exam nl Labs/Diagnostic Data Labs Test 01/20/25 11:06 01/20/25 04:43 01/19/25 03:30 01/19/25 00:50 Range/Units Lactic Acid Level 1.2 0.4-2.0 mmol/L White Blood Count 5.0 # 4.4-10.8 10^3/uL Red Blood Count 4.01 4.0-5.20 10^6/uL Hemoglobin 11.6 L 12.2-16.2 g/dL Hematocrit 35.7 L 36.0-46.0 % Mean Corpuscular Volume 88.9 80.0-100.0 fL Mean Corpuscular Hemoglobin 29.0 28.0-32.0 pg Mean Corpuscular Hemoglobin Concent 32.6 32.0-36.0 g/dL Red Cell Distribution Width 13.9 11.8-14.3 % Platelet Count 203 140-450 10^3/uL Mean Platelet Volume 8.2 6.9-10.8 fL Neutrophils (%) (Auto) 68.6 37.0-80.0 % Lymphocytes (%) (Auto) 23.2 10.0-50.0 % Monocytes (%) (Auto) 6.5 0.0-12.0 % Eosinophils (%) (Auto) 1.6 0.0-7.0 % Basophils (%) (Auto) 0.1 0.0-2.0 % Neutrophils # (Auto) 3.4 1.6-8.6 10 ^3/uL Lymphocytes # (Auto) 1.2 0.4-5.4 10 ^3/uL Monocytes # (Auto) 0.3 0-1.3 10 ^3/uL Eosinophils # (Auto) 0.1 0-0.8 10 ^3/uL Basophils # (Auto) 0 0-0.2 10 ^3/uL Nucleated Red Blood Cells 0.2 % Sodium Level 138 136-145 mmol/L Potassium Level 4.0 3.5-5.1 mmol/L Chloride Level 108 H 98-107 mmol/L Carbon Dioxide Level 27 20-31 mmol/L Anion Gap 3 L 5-15 Blood Urea Nitrogen 6 L 9-23 mg/dL Creatinine 0.78 0.550-1.02 mg/dL Glomerular Filtration Rate Calc 105 >90 mL/min BUN/Creatinine Ratio 7.7 L 10.0-20.0 Serum Glucose 75 74-106 mg/dL Calcium Level 8.1 L 8.7-10.4 mg/dL Total Bilirubin 0.2 0.2-1.0 mg/dL Aspartate Amino Transferase (AST) 44 H 13-40 U/L Alanine Aminotransferase (ALT) 68 H 7-40 U/L Alkaline Phosphatase 83 46-116 U/L Total Protein 7.1 5.7-8.2 g/dL Albumin 3.0 L 3.2-4.8 g/dL Thyroid Stimulating Hormone (TSH) 2.70 0.55-4.78 uIU/mL Troponin I High Sensitivity 8 </=34 ng/L Urine Color Colorless Yellow Urine Clarity Clear Clear Urine pH 5.5 5.0-9.0 Urine Specific [place] 1.002 1.001-1.035 Urine Protein Trace H Negative Urine Ketones Negative Negative Urine Blood Negative Negative /uL Urine Nitrite Negative Negative Urine Bilirubin Negative Negative Urine Urobilinogen Normal Negative mg/dL Urine Leukocyte Esterase 1+ Negative /uL Urine RBC 1 0 - 4 /hpf Urine Microscopic WBC 6 H 0-5 /HPF Urine Squamous Epithelial Cells Few <5 /hpf Urine Bacteria Few H None Seen /hpf Urine Hyaline Casts Few 0 - 2 /lpf Urine Glucose Trace Normal mg/dL Urine Test Negative Negative Urine Opiates Screen Neg NEGATIVE Urine Fentanyl Screen Pos NEGATIVE Urine Barbiturates Screen Neg NEGATIVE Urine Phencyclidine Screen Neg NEGATIVE Urine Amphetamines Screen Pos NEGATIVE Urine Benzodiazepines Screen Neg NEGATIVE Urine Cocaine Screen Neg NEGATIVE Urine Cannabinoids Screen Neg NEGATIVE Test 01/19/25 00:22 Range/Units Hemoglobin A1c 5.6 <5.7 % A1C Magnesium Level 2.1 1.6-2.6 mg/dL Creatine Kinase 76 34-145 U/L Beta HCG, Quantitative 0.7 L 1.5-4.2 mIU/mL Salicylates Level < 3.0 -30 mg/dL Acetaminophen Level < 2.0 L 10.0-20.0 UG/ML Plasma/Serum Blood Alcohol 82.6 H <10 mg/dL Primary Diagnosis aloc due to over dose 2' Diagnosis/Comorbidities suture in vagina no longer present Plan no further treatment fu ouit pt for pap Plan discussed with: Patient Visit Coding OBGYN Date of Service: Jan 20, 2025 Billing Provider: KEEGAN MCNEIL DO BUSINESS ENTERPRISE OFFICER Common Visit Codes: [id number] SAME DATE (HIGH) BUSINESS ENTERPRISE OFFICER Consultation Codes: [id number] INPATIENT CONSULT (HIGH) KEEGAN MCNEIL DO Jan 20, 2025 14:13
--- NOTE | 2025-01-20 16:29 | DVHDSRES ---
Discharge Summary Date of Admission Resident Creating Document: TODD DODD RESIDENT Jan 19, 2025 at 01:54 Date of Discharge: Jan 20, 2025 Admitting Diagnosis Acute toxic or metabolic encephalopathy Labs/Diagnostic Data: Laboratory Results Test 01/20/25 11:06 01/20/25 04:43 01/19/25 03:30 01/19/25 00:50 Lactic Acid Level 1.2 mmol/L (0.4-2.0) White Blood Count 5.0 10^3/uL (4.4-10.8) Red Blood Count 4.01 10^6/uL (4.0-5.20) Hemoglobin 11.6 g/dL (12.2-16.2) Hematocrit 35.7 % (36.0-46.0) Mean Corpuscular Volume 88.9 fL (80.0-100.0) Mean Corpuscular Hemoglobin 29.0 pg (28.0-32.0) Mean Corpuscular Hemoglobin Concent 32.6 g/dL (32.0-36.0) Red Cell Distribution Width 13.9 % (11.8-14.3) Platelet Count 203 10^3/uL (140-450) Mean Platelet Volume 8.2 fL (6.9-10.8) Neutrophils (%) (Auto) 68.6 % (37.0-80.0) Lymphocytes (%) (Auto) 23.2 % (10.0-50.0) Monocytes (%) (Auto) 6.5 % (0.0-12.0) Eosinophils (%) (Auto) 1.6 % (0.0-7.0) Basophils (%) (Auto) 0.1 % (0.0-2.0) Neutrophils # (Auto) 3.4 10 ^3/uL (1.6-8.6) Lymphocytes # (Auto) 1.2 10 ^3/uL (0.4-5.4) Monocytes # (Auto) 0.3 10 ^3/uL (0-1.3) Eosinophils # (Auto) 0.1 10 ^3/uL (0-0.8) Basophils # (Auto) 0 10 ^3/uL (0-0.2) Nucleated Red Blood Cells 0.2 % Sodium Level 138 mmol/L (136-145) Potassium Level 4.0 mmol/L (3.5-5.1) Chloride Level 108 mmol/L (98-107) Carbon Dioxide Level 27 mmol/L (20-31) Anion Gap 3 (5-15) Blood Urea Nitrogen 6 mg/dL (9-23) Creatinine 0.78 mg/dL (0.550-1.02) Glomerular Filtration Rate Calc 105 mL/min (>90) BUN/Creatinine Ratio 7.7 (10.0-20.0) Serum Glucose 75 mg/dL (74-106) Calcium Level 8.1 mg/dL (8.7-10.4) Total Bilirubin 0.2 mg/dL (0.2-1.0) Aspartate Amino Transferase (AST) 44 U/L (13-40) Alanine Aminotransferase (ALT) 68 U/L (7-40) Alkaline Phosphatase 83 U/L (46-116) Total Protein 7.1 g/dL (5.7-8.2) Albumin 3.0 g/dL (3.2-4.8) Thyroid Stimulating Hormone (TSH) 2.70 uIU/mL (0.55-4.78) Troponin I High Sensitivity 8 ng/L (</=34) Urine Color Colorless (Yellow) Urine Clarity Clear (Clear) Urine pH 5.5 (5.0-9.0) Urine Specific [place] 1.002 (1.001-1.035) Urine Protein Trace (Negative) Urine Ketones Negative (Negative) Urine Blood Negative /uL (Negative) Urine Nitrite Negative (Negative) Urine Bilirubin Negative (Negative) Urine Urobilinogen Normal mg/dL (Negative) Urine Leukocyte Esterase 1+ /uL (Negative) Urine RBC 1 /hpf (0 - 4) Urine Microscopic WBC 6 /HPF (0-5) Urine Squamous Epithelial Cells Few /hpf (<5) Urine Bacteria Few /hpf (None Seen) Urine Hyaline Casts Few /lpf (0 - 2) Urine Glucose Trace mg/dL (Normal) Urine Test Negative (Negative) Urine Opiates Screen Neg (NEGATIVE) Urine Fentanyl Screen Pos (NEGATIVE) Urine Barbiturates Screen Neg (NEGATIVE) Urine Phencyclidine Screen Neg (NEGATIVE) Urine Amphetamines Screen Pos (NEGATIVE) Urine Benzodiazepines Screen Neg (NEGATIVE) Urine Cocaine Screen Neg (NEGATIVE) Urine Cannabinoids Screen Neg (NEGATIVE) Test 01/19/25 00:22 Hemoglobin A1c 5.6 % A1C (<5.7) Magnesium Level 2.1 mg/dL (1.6-2.6) Creatine Kinase 76 U/L (34-145) Beta HCG, Quantitative 0.7 mIU/mL (1.5-4.2) Salicylates Level < 3.0 mg/dL (-30) Acetaminophen Level < 2.0 UG/ML (10.0-20.0) Plasma/Serum Blood Alcohol 82.6 mg/dL (<10) Other Laboratory Tests 01/20/25 04:43 Brief Hx & Hospital Course: Braeden Dang is a 29-year-old female brought to the ED by a male gentleman due to loss of consciousness. Per eyewitness, patient was brought in by a gentleman who said he found her outside unconscious and brought her to the ED. Patient remained unconscious and unresponsive to sternal rub. Patient had a pulse thus no CPR was needed. Her serum glucose was normal. She received naloxone and in less than a minutes she became responsive, very aggressive and vomited large mount of alcohol smelling fluid. She continued to be belligerent and had to be restrained. She received another dose of Naloxone. After about 10 minutes patient was calm but drowsy. Patient was initially thought to be , but US of the abdomen was negative. Patient required hospital admission for further evaluation and management of acute toxic or metabolic encephalopathy. CT head showed no acute abnormalities. UDS was positive for fentanyl and amphetamines and alcohol. Patient developed sepsis from aspiration pneumonia for which we started on Rocephin and doxycycline. CXR showed opacities. And patient found to have acute complicated UTI for which we are already giving antibiotics and ordered a urine culture. Continuously monitored electrolyte imbalance and corrected as needed. Continuously giving IV fluids for the dehydration and monitored lab. Patient was given counseling regarding cessation of polysubstance and provided resources. Patient condition was improved, hemodynamically stable and in condition to be discharged home with optimal medical treatment. Patient was advised about healthy lifestyle modifications including diet and exercise and to follow up with PCP. General Appearance:Drowsy, Oriented X3, Cooperative, no distress HEENT: Atraumatic, Mucous membranes dry Respiratory: Clear to auscultation, Normal air movement, No added sounds Cardiovascular: Regular rate, Normal S1, Normal S2, No murmurs Abdominal: hypoactive bowel sounds, Soft, no distention, no tenderness Extremities: No edema, Normal pulses, No tenderness/swelling Skin: No Significant rash, except past surgical scars Neuro: constricted pupil, Normal speech, sensorimotor deficits none Operations or Procedures EXAM: CT HEAD WITHOUT CONTRAST IMPRESSION: 1. No acute intracranial abnormality. TECHNIQUE: Frontal view of the chest. IMPRESSION: 1. Right basilar opacity which can represent aspiration Condition at Discharge: Stable Final Diagnosis/Problems List # Acute toxic/metabolic encephalopathy likely from polysubstance overdose # ? fentanyl overdose # alcohol intoxication # polysubstance overdose # Dehydration # Lactic acidosis # ? Sepsis likely from PNA # Aspiration pneumonia # Acute G+/- Bacterial PNA # Acute complicated UTI # Hypokalemia Discharge Disposition: Home Discharge Instruct/Medications Diet: Consistent carbohydrate, Cardiac 2g Na,low cholest Activity: No Restrictions, As Tolerated Follow Up/Referral: PCP and psychiatrist Medications: Keflex po for 5 days Discharge Statement: "Patient was advised to return to the ER or call 911 if any headaches, dizziness, shortness of breath, chest pain, abdominal pain, bleeding, fevers, or worsening of medical condition. Patient was counseled about treatment plan, medications, possible side effects, patientverbalized understanding. All questions were answered to the best of my ability. This discharge took greater then 30 minutes in planning, reviewing documentation, counseling the patient, and discussing with other team members." ASSESSMENT ASSESSMENT Assessment Acute toxic metabolic encephalopathy likely due to fentanyl over dose TODD DODD RESIDENT Jan 20, 2025 16:29
[2025-01-20 16:30] VITALS: TEMP 98
[2025-01-20] MEDS ORDERED: CEPH250C PO (16:54)
[2025-01-20 18:00] VITALS: BP 106/73; PULSE 70; RESP 12; O2SAT 99
== END 2025-01-20 19:00 | disposition home or self-care (01) | DRG 812 ==
LOC: ER 00:17 → EDBD 00:17 → EDUNIT# 01:54 → OVERFLOW 01:54 → UNDODEPER 01-20 18:56
PROVIDERS: ADMIT Student in an Organized Health Care Education/Training Program; ATTEND Student in an Organized Health Care Education/Training Program
DX: T40.411A Poisoning by fentanyl or fentanyl analogs, accidental (unintentional), initial encounter (principal); A41.50 Gram-negative sepsis, unspecified; J69.0 Pneumonitis due to inhalation of food and vomit; G92.8 Other toxic encephalopathy; J15.69 Pneumonia due to other Gram-negative bacteria; E87.20 Acidosis, unspecified; J15.9 Unspecified bacterial pneumonia; E86.0 Dehydration; F19.20 Other psychoactive substance dependence, uncomplicated; E87.6 Hypokalemia; N39.0 Urinary tract infection, site not specified; F15.10 Other stimulant abuse, uncomplicated; Y92.89 Other specified places as the place of occurrence of the external cause; J18.9 Pneumonia, unspecified organism; F10.129 Alcohol abuse with intoxication, unspecified; Y90.4 Blood alcohol level of 80-99 mg/100 ml; T43.621A Poisoning by amphetamines, accidental (unintentional), initial encounter; T51.0X1A Toxic effect of ethanol, accidental (unintentional), initial encounter
CPT/HCPCS: 36415; 70450; 71045; 76805; 80053; 80307; 80320; 80329; 81001; 81025; 82550; 83036; 83605; 83735; 84443; 84484; 84702; 85025; 86850; 86900; 86901; 87086; 93005; 96361; 96374; 96375; 99291; G0378; J2405; J2470; J2543